=== PATIENT | female | born 1995 | race Two or more races ===

== ENCOUNTER 2024-01-31 10:13 | Outpatient (CLI) | payer MEDICAID, SELFPAY | END 2024-01-31 10:14 | disposition home or self-care (01) | PROVIDERS: Visit Provider Advanced Practice Midwife | DX: Z34.92 Encounter for supervision of normal pregnancy, unspecified, second trimester (principal); Z3A.15 15 weeks gestation of pregnancy | CPT/HCPCS: 81511; 86592; 86703; 86704; 86706; 86762; 86787; 86803; 86850; 86900; 86901; 87086; 87340 ==

== ENCOUNTER 2024-02-28 08:55 | Outpatient (CLI) | payer MEDICAID, SELFPAY ==
--- NOTE | 2024-02-28 09:15 | CRLHL7_ITS ---
For Patients: As a result of the Century Cures Act, medical imaging exams and procedure reports are released immediately into your electronic medical record. You may view this report before your referring provider. If you have questions, please contact your health care provider. INDICATION: survey. TECHNIQUE: Conventional transabdominal two-dimensional grayscale ultrasound examination. COMPARISON: None. FINDINGS: There is a living fetus with gestational age of 19 weeks 6 days by LMP and 20 weeks 2 days by today`s measurements. EDC based on LMP is 07/18/2024. BPD: 4.8 cm, 20 weeks 3 days Head circumference: 17.9 cm, 20 weeks 2 days Abdominal circumference: 14.8 cm, 20 weeks 1 day Femur length: 3.0 cm, 19 weeks 2 days HC/AC: 1.20 The weight is estimated at 313 grams, the 42nd percentile. The heart rate is measured at 152 beats per minute and the rhythm appears regular. The head and spine are grossly intact. No gross facial abnormality is evident. The upper lip is intact. Four cardiac chambers are demonstrated. The heart and stomach appear to be on the same side. The diaphragm is intact. Two kidneys and a bladder are demonstrated. The cord insertion is normal and three cord vessels are noted. Four extremities are demonstrated. The amniotic fluid volume is within normal limits. The placenta is posterior with no evidence of previa. The cervical length is normal at 3.7 cm. IMPRESSION: 1. Living fetus with gestational age of 19 weeks 6 days by LMP and 20 weeks 2 days by today`s measurements. EDC based on LMP is 07/18/2024. 2. No anomaly evident. Dictated by Michael Lima MD @ 02/29/2024 5:59:03 AM (Electronically Signed)
== END 2024-02-28 08:56 | disposition home or self-care (01) ==
PROVIDERS: Visit Provider Advanced Practice Midwife
DX: Z34.92 Encounter for supervision of normal pregnancy, unspecified, second trimester (principal); Z3A.19 19 weeks gestation of pregnancy
CPT/HCPCS: 76805

== ENCOUNTER 2024-04-20 08:35 | Outpatient (CLI) | payer MEDICAID, SELFPAY | END 2024-04-20 08:36 | disposition home or self-care (01) | LOC: NFLDREF 04-23 00:30 | PROVIDERS: Visit Provider Obstetrics & Gynecology | DX: Z34.82 Encounter for supervision of other normal pregnancy, second trimester (principal) | CPT/HCPCS: 86592 ==

== ENCOUNTER 2024-05-18 13:31 | Outpatient (CLI) | payer MEDICAID, SELFPAY ==
--- NOTE | 2024-05-18 14:00 | CRLHL7_ITS ---
For Patients: As a result of the Cures Act, medical imaging exams and procedure reports are released immediately into your electronic medical record. You may view this report before your referring provider. If you have questions, please contact your health care provider. INDICATION: Growth US for Hx Gastric Bypass COMPARISON: Obstetric ultrasound on February 28, 2024 TECHNIQUE: Obstetric ultrasound follow-up, transabdominal approach, utilizing grayscale and color Doppler FINDINGS: Sonographic imaging demonstrates a single living intrauterine gestation. The fetus has a regular cardiac rate of 147 beats per minute. The fetus has a vertex orientation. The placenta lies posterior without evidence of placenta previa. Amniotic fluid volume appears normal. The cervix is not visualized. The composite ultrasound gestational age is calculated at 32 weeks and 1 day with an estimated sonographic due date of 07/12/2024. The estimated weight is 1843 grams which lies at the 56th percentile. The following biometric measurements were obtained: Biparietal diameter: 8.0 cm, 32 weeks and 0 days Head circumference: 30.6 cm, 34 weeks and 0 days Abdominal circumference: 28.0 cm, 32 weeks and 0 days Femur length: 5.9 cm, 30 weeks and 5 days The HC/AC ratio measures: 1.09 IMPRESSION: 1. Single living intrauterine gestation in vertex position with heart rate 147 beats per minute. 2. Ultrasound gestational age 32 weeks and 1 day with sonographic due date 07/12/2024. 3. The estimated weight is 1843 grams which lies at the 56th percentile. Dictated by Brant Carl MD @ 05/19/2024 10:56:39 AM (Electronically Signed)
== END 2024-05-18 13:32 | disposition home or self-care (01) ==
LOC: US 13:32
PROVIDERS: Visit Provider Obstetrics & Gynecology
DX: O99.843 Bariatric surgery status complicating pregnancy, third trimester (principal); Z3A.32 32 weeks gestation of pregnancy
CPT/HCPCS: 76816

== ENCOUNTER 2024-06-02 13:40 | Outpatient (CLI) | payer MEDICAID, SELFPAY | END 2024-06-02 13:41 | disposition home or self-care (01) | LOC: NFLDREF 06-03 03:32 | PROVIDERS: Visit Provider Obstetrics & Gynecology | DX: O99.013 Anemia complicating pregnancy, third trimester (principal); Z3A.33 33 weeks gestation of pregnancy | CPT/HCPCS: 82728 ==

== ENCOUNTER 2024-06-26 08:57 | Outpatient (CLI) | payer MEDICAID, SELFPAY ==
[2024-06-27 11:10] LABS: Strep B DNA Probe Negative (Negative)
[2024-06-27 11:16] LABS: Strep B Susceptibility Needed? No
== END 2024-06-26 08:58 | disposition home or self-care (01) ==
PROVIDERS: Visit Provider Obstetrics & Gynecology
DX: Z34.83 Encounter for supervision of other normal pregnancy, third trimester (principal)
CPT/HCPCS: 82306; 82310; 87081; 87653

== ENCOUNTER 2024-07-11 01:32 | Inpatient (IN) | payer MEDICAID, SELFPAY ==
[2024-07-11] VITALS (22 sets, daily range): BP systolic 115–169; BP diastolic 55–92; PULSE 68–93; RESP 16–20; TEMP 36.4–37.2; O2SAT 94–100; BMI 34.2
[2024-07-11] MEDS: LACTATED RINGERS 1000 ML 1,000 ML 900 ML IV (02:00)
[2024-07-11 02:04] LABS: Hemoglobin* 10.4 gm/dL (12.0-16.0)
--- NOTE | 2024-07-11 02:19 | W.PM.H&PU ---
History & Physical Update History & Physical Update H&P Reviewed and patient assessed: No changes noted
--- NOTE | 2024-07-11 02:19 | PM.PROC ---
Procedure Note Time Seen by Provider: 03:46 Date Seen: 07/11/24 Date of procedure: 07/11/24 Will [facility] bill your pro fee for this procedure?: Yes Procedure: Preoperative diagnosis: Tara is a 29-year-old 4 para 1 at 39 and 0/7 weeks admitted after SROM and spontaneous onset of labor who desires a scheduled repeat low transverse section. Postoperative diagnosis: Same Procedure: Repeat low-transverse section. Anesthesia: Spinal Surgeon: Maite Karimi MD Sap Ppm Consultant: Not applicable Quantitative blood loss: 414 mL IV Fluid: 1500 mL UOP: 100 mL clear urine at the end of the procedure Drain(s): Castillo to gravity. Specimen: None Findings: A live male infant was delivered from the direct OA position at 3:06 a.m.. Apgars were 7 at 1 min and 9 at 5 min, respectively. weight: 7 lb 5 oz. Nuchal cord(s): Yes: Single loose nuchal cord easily reduced at the surgical field prior to delivery of the infant's shoulders. The placenta was delivered spontaneously and complete at 3:07 a.m.. Amniotic fluid: Clear. Normal uterus, fallopian tubes and ovaries were noted. Other findings: Thin adhesions of the omentum to the right anterior uterine wall that were taken down with bipolar cautery. Procedure: Tara was taken to the OR where spinal anesthetic was found be adequate. A Castillo catheter was placed. The patient was then placed in the dorsal supine position with a leftward tilt. She was then prepped and draped in a normal sterile manner. A Pfannenstiel skin incision was made and carried through sharply to the underlying layer of fascia. Fascia was incised in the midline and this incision carried laterally with Coffman scissors. The superior aspect of fascial incision was grasped with Sumeet clamps, tented up, and the rectus muscles dissected off with a combination of blunt and sharp dissection. The inferior aspect of the fascial incision was not dissected off the rectus muscles. The rectus muscles were in the midline. The peritoneum was entered bluntly. This opening was extended bluntly. An Abel-O self-retaining retractor was placed. A bladder flap not created. Uterus was incised in a low transverse manner in the midline. This incision carried laterally with blunt pressure on the inferior and superior aspects of the uterine incision. The amniotic sac was ruptured. The 's head and body were delivered atraumatically. The infant was shown to the patient and her support person. The umbilical was clamped and cut immediately/after a 30-60 second delay. The was then handed to waiting pediatric and nursing staff. The placenta was delivered spontaneously. The uterus was cleared of clots and debris. The uterine incision was re-approximated with the uterus in vivo. The 1st layer using 0-Vicryl in a running, locked manner. The 2nd layer using 0-Monocryl in a running, vertical, imbricating layer. Additional sutures needed for hemostasis: No. Excellent hemostasis was confirmed. To visualize the right fallopian tube and ovary there were thin adhesions of the omentum that were adherent to the anterior right uterine wall that were taken down with bipolar cautery. Excellent hemostasis verified he. The Abel retractor was removed. The rectus muscles were not reapproximated. The rectus muscles were then closely inspected to verify hemostasis. Hemostasis was obtained with bipolar cautery. The fascia was then reapproximated using 0-Maxon loop in a running manner. The subcutaneous tissue was then irrigated with saline and hemostasis obtained with bipolar cautery. The subcutaneous tissue was reapproximated using 3-0 plain gut in 2 layers. The 1st layer was a running suture the 2nd layer was repaired using interrupted sutures. The skin was reapproximated using 4-0 Monocryl in a running subcuticular manner. Exophin skin adhesive and a Mepiplex dressing were applied. The patient tolerated this procedure well. Sponge, lap and instrument counts were correct x2 active to the procedure. Patient was taken to the recovery area in stable condition. The patient received: 900 mg IV clindamycin and 5 mg/kg IV gentamicin prior to incision.
[2024-07-11] MEDS: CLINDAMYCIN 900 MG/50 ML-D5W 900 MG/50 ML PIGGYBACK 100 MG IVPB (02:40)
[2024-07-11] MEDS: GENTAMICIN 325 MG in 0.9 % SODIUM CHLORIDE 100 ml 100 ML 108.13 MG IVPB (02:56)
[2024-07-11] MEDS: KETOROLAC 30 MG/ML inj IVP ×4 (03:34→21:49)
--- NOTE | 2024-07-11 04:08 | W.PM.NB ---
Nerve Block Nerve Block Time Seen by Provider: 03:50 Date Seen: 07/11/24 Type of block requested by surgeon for post-operative analgesia: TAP Side: bilateral Time out performed: Yes Verification of patient name: Yes Verification of date of : Yes Site marking: site marked Name of person performing procedure: Nando Parkinson Continuous monitoring Was continuous monitoring of O2 sat, B/P, sintering press operator, recorded every 15 minutes?: Yes Procedure Checklist: sterile prep, needles and gloves Ultrasound guided. Images saved: Yes Medications given in 5ml increments after negative aspiration: Marcaine %: 0.25 mL: 30 Needle gauge: 20 and Exparel mL: 10 Needle gauge: 20 Patient tolerated procedure well: Yes Additional comments: Injected in 5 mL increments after negative aspiration Block Charges Block Charge (with Pro Fee): TAP Bilateral Use of Ultrasound Machine for Block: Yes- US Guidance/pain block
--- NOTE | 2024-07-11 04:09 | P.ANES_ITS ---
Anesthesia Charges Start Date/Time Anesthesia Start Date: 07/11/24 Anesthesia Start Time: 02:24 Stop Date/Time Anesthesia Stop Date: 07/11/24 Anesthesia Stop Time: 04:00 Summary Emergency: SOIL BIOLOGY TEACHER Coding CPT Codes CPT Codes: ANESTH CS DELIVERY - 80017 ([id number]) P2 - PATIENT W/MILD SYST DISEASE, QZ - SOIL BIOLOGY TEACHER SVC W/O LICENSING REPRESENTATIVE BY Additional Codes: Summary - Emergency: SOIL BIOLOGY TEACHER ([id number])
--- NOTE | 2024-07-11 04:09 | W.ANESCHARGE ---
Anesthesia Charges Start Date/Time Anesthesia Start Date: 07/11/24 Anesthesia Start Time: 02:24 Stop Date/Time Anesthesia Stop Date: 07/11/24 Anesthesia Stop Time: 04:00 Summary Emergency: TECHNOLOGY AUDITOR Coding CPT Codes CPT Codes: ANESTH CS DELIVERY - 16884 ([id number]) P2 - PATIENT W/MILD SYST DISEASE, QZ - TECHNOLOGY AUDITOR SVC W/O ADVANCED PRACTICE PROVIDER BY Additional Codes: Summary - Emergency: TECHNOLOGY AUDITOR ([id number])
[2024-07-11] MEDS: ACETAMINOPHEN 500 MG TABLET 1000 MG PO ×3 (05:04→20:24)
[2024-07-11] MEDS: OXYCODONE 5 MG TABLET PO ×3 (05:34→17:08)
[2024-07-11 06:01] LABS: Hematocrit 30.7 % (33.0-51.0); Hemoglobin* 9.9 gm/dL (12.0-16.0); Mean Corpuscular HGB Conc 32 gm/dL (32-36); Mean Corpuscular Hemoglobin 27 pg (26-34); Mean Corpuscular Volume 85 fL (80-100); Platelet Count* 240 K/uL (140-440); Red Blood Count 3.61 m/uL (4.00-5.20); White Blood Count* 17.55 K/uL (4.50-11.00)
[2024-07-11 06:03] LABS: Slide Review Reflex No
[2024-07-11 06:17] LABS: Alanine Aminotransferase* 20 U/L (4-35); Aspartate Amino Transferase* 29 U/L (12-35); Blood Urea Nitrogen* 9 mg/dL (5-24); Creatinine* 0.5 mg/dL (0.5-1.5); Est. Creatinine Clearance* 139.81; Estimated Glomerular Filt Rate 132 ml/min
[2024-07-11 06:55] LABS: Total Protein Urine 71 mg/dL
[2024-07-11 06:56] LABS: Creatinine Urine 126.4 mg/dL; Protein Creatinine Ratio Urine 0.56 (0-0.19)
[2024-07-11] MEDS: FERROUS SULFATE 325 MG TABLET PO (09:49)
[2024-07-11] MEDS: SODIUM CHLORIDE 0.9 % (FLUSH) 10 ML SYRINGE IVF (15:21)
[2024-07-12 00:14] VITALS: BP 132/87; PULSE 77; RESP 22; O2SAT 98
[2024-07-12] MEDS: ACETAMINOPHEN 500 MG TABLET 1000 MG PO ×4 (01:49→21:25)
[2024-07-12] MEDS: KETOROLAC 30 MG/ML inj IVP ×2 (03:59→10:30)
[2024-07-12 04:01] VITALS: BP 121/78; PULSE 73; RESP 18; TEMP 36.5; O2SAT 97
[2024-07-12 07:29] LABS: Hemoglobin* 8.7 gm/dL (12.0-16.0)
--- NOTE | 2024-07-12 07:42 | PM.OBPNVD1 ---
OB - PN:Subj Subjective Date Seen: 07/12/24 Narrative: Tara is a 29 y.o. G 4 P 2 who was admitted to L & D for spontaneous labor planning repeat c/s. ?She had a section that was uncomplicated. The patient feels well. ?The pain is well controlled with current medications. ?She has no new complaints. ?She is breast feeding and reports things are going ok. She is also formula feeding. the patient has done well.? Vitals have been stable.? She has remained afebrile.? Has a good appetite, is tolerating a general diet. ?She is voiding without difficulty.? She is passing gas and has not had a bowel movement.? She is ambulating and denies any dizziness.? Has small amount of rubra lochia. Problems: Anemia OB - PN: Obj Exam Physical Exam: Vital signs: Temp Pulse Resp BP Pulse Ox O2 Del Method 97.7 F 73 18 121/78 97 Room Air 07/12/24 04:01 07/12/24 04:01 07/12/24 04:01 07/12/24 04:01 07/12/24 04:01 07/12/24 04:01 Narrative: GENERAL APPEARANCE:? normal affect, alert, no distress MOOD:? appropriate CHEST:? clear to auscultation HEART:? regular rate and rhythm ABDOMEN:? soft, non-tender the uterine fundus is At Umbilicus, Midline and is appropriate for the stage of recovery. EXTREMITIES:? normal and no edema INCISION: Dressing in place; clean, dry, and intact. To be removed this morning by RN OB - PN: Obj Data Labs Labs: Laboratory Results - last 24 hr 07/12/24 06:06 Hgb 8.7 L OB - PN: A/P Delivery Assessment and Plan (1) Status post repeat low transverse section: Status: Acute (2) Anemia affecting : Status: Acute Plan day: 1 Plan: routine care Comments: Routine post op , may see if needed? Hgb 8.7. Iron supplement ordered orally every other day? Anticipate discharge tomorrow
[2024-07-12 08:33] VITALS: BP 132/87; PULSE 74; RESP 16; TEMP 36.8; O2SAT 97
[2024-07-12] MEDS: DOCUSATE SODIUM 100 MG CAPSULE PO (10:30)
[2024-07-12 10:47] LABS: Rapid Plasma Reagin (RPR) Non Reactive (Non Reactive)
[2024-07-12 12:48] VITALS: BP 136/84
[2024-07-12 16:19] VITALS: BP 112/72; PULSE 96; RESP 16; O2SAT 97
[2024-07-12] MEDS: IBUPROFEN 600 MG TABLET PO (18:56)
[2024-07-12 23:55] VITALS: BP 126/85; PULSE 85; RESP 16; TEMP 36.7; O2SAT 97
[2024-07-13] MEDS: IBUPROFEN 600 MG TABLET PO (06:22)
--- NOTE | 2024-07-13 07:41 | P.DS_ITS ---
DS: Providers Provider Date Seen: 07/13/24 Date of admission: 07/11/24 01:32 Primary care physician: Not a Local Provider Admitting Clinician: Maite Karimi MD Attending Physician on discharge: Miriam ROCHA MATTRESS MAKER Date of Discharge: 07/13/24 DS: Diagnosis Discharge Diagnosis (1) Anemia affecting : Status: Acute (2) Status post repeat low transverse section: Status: Acute Exam Narrative: Exam Narrative: GENERAL APPEARANCE:? normal affect, alert, no distress MOOD:? appropriate CHEST:? clear to auscultation HEART:? regular rate and rhythm ABDOMEN:? soft, tender the uterine fundus is at Umbilicus, Midline and is appropriate for the stage of recovery. EXTREMITIES:? normal and no edema Incision: Healing well, no surrounding erythema, abnormal induration or discharge Const: Vital Signs, click to edit/add: Vital Signs - 24 hr 07/12/24 08:33 07/12/24 12:48 07/12/24 16:19 Temperature 98.3 F Pulse Rate [Pulse Oximeter] 74 96 Respiratory Rate 16 16 Blood Pressure [Ri ght Arm] 132/87 136/84 112/72 Pulse Oximetry 97 97 Oxygen Delivery Me thod Room Air Room Air 07/12/24 23:55 Temperature 98.1 F Pulse Rate [Pulse Oximeter] 85 Respiratory Rate 16 Blood Pressure [Ri ght Arm] 126/85 Pulse Oximetry 97 Oxygen Delivery Me thod Room Air OB - DS: Summary Hospital Course Hospital Course: Tara is a 29 y.o. G 4 P 2021 who was admitted to L & D for scheduled repeat .? She had a section that was uncomplicated. The patient feels well.? The pain is well controlled with current medications. She is declining a home RX for oxycodone? She has no new complaints.? She is bottle feeding and reports things are going well. the patient has done well.? Vitals have been stable.? She has remained afebrile.? Has a good appetite, is tolerating a general diet.? She is voiding without difficulty.? She is passing gas and has not had a bowel movement.? She is ambulating and denies any dizziness.? Has small amount of rubra lochia. She is planning contraception, but is unsure of which type. This should be discussed at her visit. ?? Problems: none? Discharge home with baby.? Follow up in 1-2 weeks and 6 weeks.? Bottlefeed Hgb 8.7. Iron supplement to continue orally every other day? ? Labs WNL or stable with trending? ? ? Call for signs/symptoms of preeclampsia? Peripartum Data delivery method: Repeat Section Episiotomy description: None Procedures: Procedures Operation Date: 07/11/24 02:45 Actual Procedure Side Surgeon p low transverse Section Maite Karimi MD complications: none Bison Infant Gender: Male Infant Discharge Plan: Home Status at Discharge Overall status at discharge: patient is progressing back to baseline Time Spent with Patient Time attestation: Total time spent providing and/or coordinating discharge services: Time spent: Less than 30 minutes Discharge Plan Discharge Disposition: Home, Self-Care Date of Admission: 07/11/24 01:32 Attending Provider on Discharge: Monika Freeman Primary Care Provider: Provider,Not a Local Condition: Stable Anticipated Discharge Date/Time: 07/13/24 12:00 Discharge Medications: New acetaminophen 500 mg Tablet 1,000 mg PO Q6H PRN (Reason: Pain) Qty: 60 1RF docusate sodium 100 mg Capsule 100 mg PO BID PRN (Reason: constipation) Qty: 60 1RF Continued ferrous sulfate 220 mg (44 mg iron)/5 mL elixir 220 mg PO QMWF Qty: 473 0RF DHA 200 mg capsule PO ferrous sulfate 325 mg (65 mg iron) tablet 325 mg PO Q OTHER DAY Qty: 30 0RF Alive Premium 120 mcg-25 mg- 66.7 mg tablet,chewable 1 tab PO DAILY Qty: 60 3RF Discharge Orders: Discharge Order (Routine); Ordered 07/13/24 Ordered By: Monika Freeman Patient Education: OB Care, OB Over the Counter Medication Information, OB /Bottle Feeding Additional Instructions: Discharge instructions were reviewed with the patient including signs and symptoms of infection and home going medications Lifting Restrictions: 20 pounds for 6 weeks No not submerge incision under water X 2 weeks? Nothing vaginally for 6 weeks: no tampons or intercourse Do not drive while taking narcotic pain medication(s) Off Work or School for 6 weeks Symptoms to report to doctor: * Bleeding that saturates more than one pad per hour * Passing clots larger than the size of a golf ball * Pain not relieved by prescribed medication * Fever above 100.4 degrees Fahrenheit * A foul vaginal odor * Difficulty in emotions, mood, and functions * Thoughts of hurting yourself and/or * Painful, reddened area in your breast * Any drainage, redness, or tenderness in your IV/epidural site * Severe headache that doesn't improve after taking medications * Changes in vision, including temporary loss of vision, blurred vision, and/or light sensitivity * Upper abdominal pain (usually under ribs on the right side) * Decrease in urination or painful, frequent urinating * Chest pain * Shortness of breath * Tenderness or pain with redness and/swelling in the calf(s) of your leg 1-2-week visit: incision check, discuss feeding concerns, review control options and screen for anxiety/depression. 6-week visit for an annual exam. consultation services are available to all mothers and babies for the first year after delivery.? To make an appointment, please call [phone]. For pain control of perineum, breast and pelvic pain, take 600 mg Ibuprofen every 6 hours as needed by mouth or 1000 mg acetaminophen (Tylenol) every 6 hours by mouth as needed. You can alternate these so you are taking something every 3 hours as needed. A heating pad can also be used for your abdomen or breasts. You may also take docusate sodium up to twice daily to soften your stools and help to prevent constipation. You may wean off of it when your stools return to normal.? Activity Level: No strenuous activity and Light activity Discharge Diet: Regular Follow Up Appointments: [facility] [Provider Group] Forms: MyHealth Info Instructions
[2024-07-13 08:13] VITALS: BP 130/87; PULSE 92; RESP 16
[2024-07-13] MEDS: DOCUSATE SODIUM 100 MG CAPSULE PO (09:10)
[2024-07-13] MEDS: FERROUS SULFATE 325 MG TABLET PO (09:10)
[2024-07-13] MEDS: ACETAMINOPHEN 500 MG TABLET 1000 MG PO (09:12)
== END 2024-07-13 10:04 | disposition home or self-care (01) | DRG 788 ==
LOC: OB OUT 01:32 → OB 01:32
PROVIDERS: Admitting Provider Obstetrics & Gynecology; Visit Provider Obstetrics & Gynecology
PROC: 10D00Z1 Extraction of Products of Conception, Low, Open Approach (ICD-10-PCS; CPT 59514; principal; 2024-07-11 02:30)
DX: O34.211 Maternal care for low transverse scar from previous cesarean delivery (principal); G89.18 Other acute postprocedural pain; O99.02 Anemia complicating childbirth; D64.9 Anemia, unspecified; O99.844 Bariatric surgery status complicating childbirth; Z3A.39 39 weeks gestation of pregnancy; Z37.0 Single live birth
CPT/HCPCS: 01961; 36415; 64488; 76942; 82565; 82570; 84112; 84156; 84450; 84460; 84520; 85018; 85027; 86592; 86850; 86900; 86901; 99140; A4314; A9270; J0665; J0666; J0736; J1100; J1580; J1885; J2371; J2405; J2590; J7120